=== PATIENT | male | born 1955 | race Caucasian/White ===

== ENCOUNTER 2016-12-11 22:10 | Emergency (ER) | payer MEDICARE ==
[~2016-12-11 22:10] MED LIST: AMBIEN5 MG PO; ASPIRIN CHEWABL81 MG PO; ASPIRIN325 MG PO; AUGMENTIN TAB875 MG PO; FAMOTIDINE40 MG PO; FISH OIL DR 1,1 EAC1 PO; FOLIC ACID 1 MG1 MG PO; KLONOPIN TAB 00.5 MG PO; LIPITOR TAB 2020 MG PO; MEGACE400 MG/10 PO; METHOTREXA25 MG/1 M2 INJ; NITROGLYCERIN6.5 M1 PO; NORCO 5-325 TA1 EACH PO; PLAVIX 75 MG TA75 MG PO; PREDNISONE 5 MG5 MG PO; PROTONIX40 MG PO; RANEXA1000 MG PO; SINEMET 25-1001 EACH PO; SOTALOL120 MG PO; SOTALOL80 MG PO
[2016-12-12 00:24] LABS: HEMOGLOBIN 11.8 gm/dl (14.0-17.5); RED BLOOD COUNT 4.17 M/UL (4.20-5.50); WHITE BLOOD COUNT 10.9 K/UL (4.5-11.0)
[2016-12-12 00:27] LABS: BUN/CREATININE RATIO 24 (0-10)
== END 2016-12-12 11:35 | disposition home or self-care (01) ==
LOC: ER1 22:10 → ZEROF 12-12 07:00
PROVIDERS: Emergency Medicine
DX: R07.89 Other chest pain (principal); I25.10 Atherosclerotic heart disease of native coronary artery without angina pectoris; C34.90 Malignant neoplasm of unspecified part of unspecified bronchus or lung; Z90.2 Acquired absence of lung [part of]
CPT/HCPCS: 36415; 71020; 80053; 82550; 82553; 83874; 83880; 84484; 85025; 85610; 85730; 86140; 93005; 96374; 96375; 96376; 99285; J2270; J2405; J7050; Q9963